=== PATIENT | male | born 1980 | race Caucasian/White ===

== ENCOUNTER 2022-04-22 01:52 | Outpatient (CLI) | payer MEDICAID, SELFPAY ==
[2022-04-22 12:49] LABS: ALT 98 U/L (16-63); AST 18 U/L (15-37); Albumin 4.1 g/dL (3.4-5.0); Alkaline Phosphatase 65 U/L (46-116); Anion Gap 8.8 mmol/L (3-11); BUN 12 mg/dL (7-18); Bilirubin, Total 0.8 mg/dL (0.2-1.0); CO2 27.2 mmol/L (21.0-32.0); CREATININE 1.2 mg/dL (0.70-1.30); Calcium 9.1 mg/dL (8.5-10.1); Calculated LDL 188 mg/dL (<100); Chloride 104 mmol/L (98-107); Cholesterol 257 mg/dL (<200); Glucose 96 mg/dL (74-106); HDL Cholesterol 46 mg/dL (40-60); Potassium 4.4 mmol/L (3.5-5.1); Sodium 140 mmol/L (136-145); Triglyceride 115 mg/dL (<150)
== END 2022-04-22 01:53 | disposition home or self-care (01) ==
LOC: LBO 01:52
PROVIDERS: PCP Family Medicine; Visit Provider Family Medicine
DX: E78.5 Hyperlipidemia, unspecified (principal)
CPT/HCPCS: 36415; 80053; 80061

== ENCOUNTER 2022-06-19 07:14 | Emergency (ER) | payer MEDICAID, SELFPAY ==
[2022-06-19 07:17] VITALS: BP 123/74; PULSE 90; RESP 18; TEMP 36.7; O2SAT 98
--- NOTE | 2022-06-19 07:51 | ED.GENADUL_ITS ---
Discharge Plan Disposition Patient Disposition: HOME Condition: Stable Discharge Details Clinical Impression: Cellulitis of left hip, Spider bite Primary Care Provider: Luis E Alcazar ED Provider: Alexandria Bueno Home Meds and New Rx's Prescriptions: New cephalexin 500 mg capsule 500 mg PO QID 7 Days Qty: 28 0RF Continued citalopram [Celexa] 20 mg tablet 20 mg PO DAILY Qty: 90 3RF quetiapine [Seroquel] 100 mg tablet 100 mg PO DAILY Qty: 90 3RF hydroxyzine HCl 50 mg tablet 100 mg PO QHS Qty: 180 3RF atorvastatin 40 mg tablet 40 mg PO QHS Qty: 90 3RF quetiapine [Seroquel] 50 mg tablet 50 mg PO QHS MDD 150 mg Qty: 90 1RF Discharge Instructions Instructions: Cellulitis (ED) Additional Instructions: Drink plenty of fluids and get plenty of rest. Keep the area clean and dry and avoid rubbing from pants or tight clothing. Apply warm compresses to the area for 10-15 minutes at a time several times daily. A prescription for antibiotics has been sent electronically to your pharmacy to take as directed until finished. Follow up with your primary care doctor in 1 week for re-evaluation. Return immediately to the emergency department if you develop any worsening or new concerning symptoms of fever, increased pain, redness, or swelling. Discharge Data Discharge Date/Time-TO BE ENTERED AT DEPARTURE: 06/19/22 08:13 Discharge Physician: Alexandria Bueno Medical Decision Making 41yo M who presents with L hip redness, pain, and swelling s/p spider bite 4 days ago. 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 There is a 2x6cm area of tender indurated erythema located on the L lateral hip. No abscess. Pt appears nontoxic. Will cover with PO antibiotics as there is no abscess with indication for I and D at this time. Denies h/o tick or bull's eye rash or fever. Dose of keflex given here and script sent electronically to his pharmacy. Advised to f/u with his pcp. Usual and customary return precautions given. HPI General Mode of arrival: ambulatory . Date/Time Provider Initiated Documentation: 06/19/22 07:39 . Limitations to Documentation: no limitations . Information obtained by: patient . HPI Narrative: Pt is a 41yo M who presents with c/o a spider bite to his L hip 4 days ago now with pain, redness and swelling. 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 Denies any known brown recluse or black spiders. He states 4 days ago he saw a spider on him and felt a prick on his Left hip and saw the spider crawling away. He states he was wearing pants that were rubbing near the area and now has developed worsening redness, pain, and swelling in the area. Denies any known tick bite, fever, chills, bodyaches, or bull-eye rash. Related Data Home Medications Medication Instructions Recorded Confirmed citalopram 20 mg tablet (Celexa) 20 mg PO DAILY #90 tabs 04/08/22 06/19/22 quetiapine 100 mg tablet (Seroquel) 100 mg PO DAILY #90 tabs 04/08/22 06/19/22 atorvastatin 40 mg tablet 40 mg PO QHS #90 tabs 06/03/22 06/19/22 hydroxyzine HCl 50 mg tablet 100 mg PO QHS #180 tabs 06/03/22 06/19/22 quetiapine 50 mg tablet (Seroquel) 50 mg PO QHS #90 tabs 06/13/22 06/19/22 cephalexin 500 mg capsule 500 mg PO QID 7 days #28 caps 06/19/22 Previous Rx's Medication Instructions Recorded citalopram 20 mg tablet (Celexa) 20 mg PO DAILY #90 tabs 04/08/22 quetiapine 100 mg tablet (Seroquel) 100 mg PO DAILY #90 tabs 04/08/22 atorvastatin 40 mg tablet 40 mg PO QHS #90 tabs 06/03/22 hydroxyzine HCl 50 mg tablet 100 mg PO QHS #180 tabs 06/03/22 quetiapine 50 mg tablet (Seroquel) 50 mg PO QHS #90 tabs 06/13/22 cephalexin 500 mg capsule 500 mg PO QID 7 days #28 caps 06/19/22 Allergies Allergy/AdvReac Type Severity Reaction Status Date / Time No Known Allergies Allergy Verified 06/13/22 09:16 General Stated Complaint: Cellulitis EBER: 4 Review of Systems All systems reviewed & are unremarkable except as noted in HPI and below Constitutional Constitutional: Reports as per HPI, Denies chills and Denies fever(s) Eyes Eyes: Denies blurry vision ENT Ears, Nose, Mouth, and Throat: Denies dizziness, Denies sore throat and Denies throat swelling Cardiovascular Cardiovascular: Denies chest pain and Denies dyspnea Respiratory Respiratory: Denies cough and Denies dyspnea Gastrointestinal Gastrointestinal: Denies abdominal pain, Denies diarrhea and Denies vomiting Genitourinary Genitourinary: Denies hematuria and Denies dysuria Musculoskeletal Musculoskeletal: Denies back pain and Denies numbness Integumentary/Breasts Skin/Breast: Denies lesions and Denies rash Neurologic Neurologic: Denies dizziness, Denies localized weakness and Denies numbness Allergic/Immunologic Allergic/Immunologic: Denies throat swelling PFSH All Active Problems (Updated 06/19/22 @ 07:52 by Alexandria Bueno DO) Cellulitis of left hip (Acute) Spider bite (Acute) Hyperlipidemia (Acute) Contact dermatitis (Acute) Insomnia (Acute) Anxiety and depression (Chronic) Medical History (Updated 06/19/22 @ 07:52 by Alexandria Bueno DO) Anxiety Chronic back pain Depression History of suicide attempt Vertigo Surgical History (Updated 03/25/22 @ 13:27 by Nallely Samuels) History of appendectomy Family History (Updated 03/25/22 @ 13:30 by Nallely Samuels) Brother Asthma Depression Diabetes Father Depression Diabetes Social History (Updated 03/25/22 @ 13:52 by Nallely Samuels) Smoking/Tobacco Use Status: Never Smoking risk assessment performed?: Yes Alcohol Intake: never Drug use: Never Substance use type: does not use Adopted: Yes Caregiver/Support person: No Foster care: Yes Household members: family Housing: house Number of Children: 1 Communication Needs: Corrective Lenses Education Level: high school Pets and animals: Yes Pets and animals: dog(s) Sexually active: Yes Do you think of yourself as: straight/heterosexual Current gender identity: male What is your relationship status?: How often do you talk on the phone with friends or family?: three or more times per week How often do you get together with friends or relatives?: once per week Do you belong to any clubs or organized social groups?: no Panel score (0-1 are the most socially isolated patients): 2 What type of physical activity do you participate in: walking Duration: 45-60 minutes/day Frequency: 3-4 times per week Minerva/Anabaptist: Other Seatbelt use: always Helmet use: No Drive intox or ride w/intox dedicated regional driver: No Do you feel safe at home: Yes Do you feel safe in your relationship?: Yes Exam Const General: cooperative, healthy appearing and no acute distress HENMT Head: normal to inspection Mouth: oral mucosae normal Eyes General: appearance normal, both eyes and all related structures Neck Neck: normal visual inspection Resp Effort & Inspection: normal respiratory effort and able to speak in complete sentences Cardio Rate: regular rate Skin General skin exam: no rashes or lesions noted Neuro General: patient alert, patient awake and patient oriented x3 Motor: muscle tone normal throughout Extrem General: normal to inspection and full ROM Upper/lower leg/hip images: 1. 2x6cm area of tender, indurated erythema located just above left lateral anterior hip. No fluctuance. 2. 1x1cm crust in center, nondraining. Psych Appearance: grossly normal Affect: normal affect Course Vital Signs Vital signs: Vital Signs Temperature 98.1 F 06/19/22 07:17 Pulse 90 06/19/22 07:17 Respiratory Rate 18 06/19/22 07:17 Blood Pressure 123/74 06/19/22 07:17 Pulse Oximetry 98 06/19/22 07:17 Temperature 98.1 F 06/19/22 07:17 Temperature Source Temporal Artery Scan 06/19/22 07:17 Pulse 90 06/19/22 07:17 Respiratory Rate 18 06/19/22 07:17 Blood Pressure 123/74 06/19/22 07:17 Blood Pressure Position Supine 06/19/22 07:17 Pulse Oximetry 98 06/19/22 07:17 Oxygen Delivery Method Room Air 06/19/22 07:17 Oxygen Flow Rate 0 06/19/22 07:17 Pain Level 0 06/19/22 07:17
[2022-06-19] MEDS: Cephalexin 500 MG CAP PO (07:55)
[2022-06-19] MEDS: Cephalexin 500 MG CAP, 4 CAPS/BTL PO (07:58)
[2022-06-19 08:05] VITALS: BP 123/74; PULSE 90; RESP 18; TEMP 36.7; O2SAT 98
== END 2022-06-19 08:13 | disposition home or self-care (01) ==
PROVIDERS: Emergency Provider Physician Assistant; PCP Family Medicine
DX: T63.301A Toxic effect of unspecified spider venom, accidental (unintentional), initial encounter (principal); L03.116 Cellulitis of left lower limb
CPT/HCPCS: 99283; 99284

== ENCOUNTER → 2022-08-26 14:50 | Outpatient (CLI) | payer OTHER, SELFPAY ==
--- NOTE | 2022-08-26 10:15 | DI.RAD_ITS ---
Exam(s) XR HAND LT COMPLETE XR WRIST LT COMPLETE EXAM: XR HAND LT COMPLETE and XR wrist LT complete CLINICAL HISTORY: Rt hand pain, M79.642, evaluate fx 4th MCP. TECHNIQUE: 2D digital imaging was performed of the left hand. Six views were obtained. AP, lateral and oblique views were obtained. COMPARISON: None for comparison. FINDINGS: BONES: No acute fracture is present. No bony destructive lesion is seen. JOINTS: No dislocation present. SOFT TISSUE: Normal. IMPRESSION: Unremarkable radiographs of the left wrist and hand. DATA REPOSITORY: RADIATION DOSE DELIVERED:
== END ==
PROVIDERS: PCP Family Medicine; Visit Provider Nurse Practitioner Family
DX: M79.642 Pain in left hand (principal); M25.532 Pain in left wrist
CPT/HCPCS: 73110; 73130

== ENCOUNTER 2022-09-05 18:08 | Observation (INO) | payer MEDICAID, SELFPAY ==
[2022-09-05 18:18] VITALS: BP 130/70; PULSE 89; RESP 18; TEMP 36.2; O2SAT 96
--- NOTE | 2022-09-05 18:40 | ED.GENADUL_ITS ---
Discharge Plan Disposition Patient Disposition: [facility] INPATIENT Condition: Stable Discharge Details Clinical Impression: Depression with suicidal ideation Admit Date/Time: 09/06/22 00:01 Admit Provider: Emile Man Attending Provider: Emile Man Primary Care Provider: Luis E Alcazar ED Provider: Christina Catherine Discharge Data Discharge Date/Time-TO BE ENTERED AT DEPARTURE: 09/06/22 00:44 Medical Decision Making 42-year-old male presents to the ER with a chief complaint of suicidal ideation which has been ongoing for the last 4 months. He reports that he was at the parole office today and began scraping his right inner arm with a DVD and then began scraping it with his fingernail. He states that the voices in his head told him to do that. He denies any other plan at this time. He does have thoughts of harm and looks around to see what he could hurt himself with. Patient placed in room in line of sight of nurses station. Placed in paper scrubs and belongings collected by hospital staff pharmacist. Urinalysis and urine drug screen obtained. Tylenol ordered for his headache. He is calm and cooperative at this time. Mental health eval order placed. Patient medically cleared via smart medical clearance form. He does not appear to be under the influence of any substances he is alert and oriented. [facility]. 1929: Maria with [facility] on phone spoke with breaker unit assembler he reports that she is already assessed the patient and is seeking placement for him as a voluntary placement. 2135: Patient is watching TV is eating some food, his normal night meds ordered, he has remained calm and cooperative throughout stay, he is aware of the plan of care and verbalizes understanding. 2301: Nirav nixon hospitalist for admission while awaiting voluntary placement. 7: Spoke with Dr. Man who agrees to come and eval patient. Medical Records Medical records reviewed: Yes I reviewed the patient's medical records. HPI General Mode of arrival: ambulatory . Date/Time Provider Initiated Documentation: 09/05/22 18:21 . Limitations to Documentation: no limitations . Information obtained by: patient, RN notes reviewed and old records reviewed . HPI Narrative: 42-year-old male presents to the ER with a chief complaint of suicidal ideation which has been ongoing for the last 4 months. He reports that he was at the parole office today and began scraping his right inner arm with a DVD and then began scraping it with his fingernail. He states that the voices in his head told him to do that. He denies any other plan at this time. He does have thoughts of harm and looks around to see what he could hurt himself with. He has been taking his normal medications as directed per his report. He denies any illicit drugs, alcohol does not smoke. He does have a history of anxiety and depression. He reports it all just came to ahead. He is calm and cooperative at this time. He does have approximately 7 cm superficial abrasion noted to his right inner forearm and some surrounding erythema consistent with his description. Related Data Home Medications Medication Instructions Recorded Confirmed citalopram 20 mg tablet (Celexa) 20 mg PO DAILY #90 tabs 04/08/22 09/05/22 atorvastatin 40 mg tablet 40 mg PO QHS #90 tabs 06/03/22 09/05/22 hydroxyzine HCl 50 mg tablet 100 mg PO QHS #180 tabs 06/03/22 09/05/22 quetiapine 100 mg tablet 150 mg HS 09/06/22 09/06/22 Previous Rx's Medication Instructions Recorded citalopram 20 mg tablet (Celexa) 20 mg PO DAILY #90 tabs 04/08/22 atorvastatin 40 mg tablet 40 mg PO QHS #90 tabs 06/03/22 hydroxyzine HCl 50 mg tablet 100 mg PO QHS #180 tabs 06/03/22 Allergies Allergy/AdvReac Type Severity Reaction Status Date / Time No Known Allergies Allergy Verified 09/05/22 18:24 General Stated Complaint: PsychEval EBER: 2 Review of Systems All systems reviewed & are unremarkable except as noted in HPI and below Constitutional Constitutional: Reports as per HPI and Reports headache(s) ENT Ears, Nose, Mouth, and Throat: Reports headache(s) Neurologic Neurologic: Reports headache(s) Psychiatric Psychiatric: Reports as per HPI, Reports depression, Reports auditory hallucinations and Reports suicidal ideation PFSH All Active Problems Depression with suicidal ideation (Acute) Hyperlipidemia (Acute) Contact dermatitis (Acute) Insomnia (Acute) Anxiety and depression (Chronic) Medical History Anxiety Chronic back pain Depression History of suicide attempt Vertigo Surgical History History of appendectomy Family History Brother Asthma Depression Diabetes Father Depression Diabetes Social History Smoking/Tobacco Use Status: Never Smoking risk assessment performed?: Yes Alcohol Intake: never Drug use: Never Substance use type: does not use Adopted: Yes Caregiver/Support person: No Foster care: Yes Household members: family Housing: house Number of Children: 1 Communication Needs: Corrective Lenses Education Level: high school Pets and animals: Yes Pets and animals: dog(s) Sexually active: Yes Do you think of yourself as: straight/heterosexual Current gender identity: male What is your relationship status?: How often do you talk on the phone with friends or family?: three or more times per week How often do you get together with friends or relatives?: once per week Do you belong to any clubs or organized social groups?: no Panel score (0-1 are the most socially isolated patients): 2 What type of physical activity do you participate in: walking Duration: 45-60 minutes/day Frequency: 3-4 times per week Minerva/Anabaptist: Other Seatbelt use: always Helmet use: No Drive intox or ride w/intox 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 Appears stated age. Normal body habitus. Head: Normocephalic, no trauma. Eyes: Pupils PERRL, Red reflex noted, EOM's intact. Eyelids symmetrical without lesions, discharge, or swelling. ENT: Bilateral TM's WNL, External ear normal to inspection, no mastoid TTP, swelling, or erythema, Nasal turbinates WNL, no nasal discharge. Normal dentition, Posterior pharynx WNL, no exudate. Chest: RRR, Normal S1, S2, distal pulses intact. Resp: Lungs clear to auscultation bilaterally, no wheezes, rales, or rhonchi. Abdomen: Soft, non-distended, Normoactive bowel sounds all 4 quads. Musculoskeletal: Normal gait, 5/5 strength to all four extremities. Skin: Superficial abrasion noted to the right inner forearm with surrounding erythema. capillary refill less than 2 sec. Neurologic: Cranial nerves II-XII intact. Alert and oriented x 3. Motor: No deficits noted. Sensory: Intact bilaterally all 4 extremities. Reflexes: DTR's intact bilaterally.. Hematologic/Lymphatic: No ecchymosis, no lymphadenopathy. Psych Appearance: well kempt Speech and Movement: speech and movement normal Affect: sad Attitude: cooperative Thought Process: normal Thought Content: hallucinations auditory and suicidality Insight: insight good Judgment: fair Course Vital Signs Vital signs: Vital Signs Temperature 36.2 C L 09/05/22 18:18 Pulse 89 09/05/22 18:18 Respiratory Rate 18 09/05/22 18:18 Blood Pressure 130/70 09/05/22 18:18 Pulse Oximetry 96 09/05/22 18:18 Temperature 36.2 C L 09/05/22 18:18 Temperature Source Tympanic 09/05/22 18:18 Pulse 89 09/05/22 18:18 Respiratory Rate 18 09/05/22 18:18 Blood Pressure 130/70 09/05/22 18:18 Blood Pressure Position Supine 09/05/22 18:18 Pulse Oximetry 96 09/05/22 18:18 Oxygen Delivery Method Room Air 09/05/22 18:18 Oxygen Flow Rate 0 09/05/22 18:18 Pain Level 4 09/05/22 18:18 PAWSS Pt Consumed Any Amount of Alcohol Within the Last 30 days OR had positive ROGELIO Upon Admission: No
[2022-09-05] MEDS: Acetaminophen 325 MG TAB 650 MG PO (18:55)
[2022-09-05 19:23] LABS: *AMPHETAMINES SCREEN URINE Negative (Negative); *BARBITURATES SCREEN URINE Negative (Negative); *BENZODIAZEPINES SCREEN URINE Negative (Negative); Cannabinoids THC Negative (Negative); Cocaine Screen,Urine Negative (Negative); METHADONE URINE SCREEN Negative (Negative); OPIATES URINE SCREEN Negative (Negative)
[2022-09-05 19:26] LABS: Tricyclic Antidepressants Negative (Negative)
--- NOTE | 2022-09-05 19:31 | NUR.NOTE ---
Nursing Note: handoff from DK at 1900. She had not seen the pt yet so I got additional report from US. Mental health eval not yet complete.
[2022-09-05] MEDS: Atorvastatin 40 MG TAB PO (20:43)
[2022-09-05] MEDS: QUEtiapine 50 MG TAB PO (20:43)
[2022-09-05] MEDS: hydrOXYzine HCL 50 MG TAB 100 MG PO (20:43)
[2022-09-05 21:46] LABS: Source Nasal/Nares
--- NOTE | 2022-09-05 22:06 | PDOC.MHCN ---
Date of service: 09/05/22 Time of Service: 20:06 PHQ-9 Over the last 2 weeks, how often have you been bothered by any of the following problems? 1. Little interest or pleasure in doing things: nearly every day 2. Feeling down, depressed, or hopeless: nearly every day 3. Trouble falling or staying asleep, or sleeping too much: nearly every day 4. Feeling tired or having little energy: nearly every day 5. Poor appetite or overeating: nearly every day 6. Feeling bad about yourself - or that you are a failure or have let yourself and your family down: nearly every day 7. Trouble concentrating on things, such as reading the newspaper or watching television: nearly every day 8. Moving or speaking so slowly that other people could have noticed? - Or the opposite - being so fidgety or restless that you have been moving around a lot more than usual: nearly every day 9. Thoughts that you would be better off or of hurting yourself in some way: nearly every day Total score: 27 If you checked off any problems, how difficult have these problems made it for you to do your work, take care of things at home, or get along with other people?: extremely difficult Source: Developed by Drs. Tye Pruitt, Doris Fernandez, Reese Fraser and colleagues, with an educational loida from [employer]. Suicide Severity Rate CSSRS Have you wished you were or wished you could go to sleep and not wake up?: Yes Have you actually had any thoughts of killing yourself?: Yes CSSRS2 Have you been thinking about how you might do this?: Yes Have you had these thoughts and had some intention of acting on them?: Yes Have you started to work out or worked out the details of how to kill yourself? Do you intend to carry out this plan?: Yes CSSRS3 Have you ever done anything, started to do anything or prepared to do anything to end your life?: Yes CSSRS4 Was this within the past three months?: Yes Screening Score Total Score: 8 Screening: Positive Mental Health Emergency Note Release [facility] release signed:: Yes Reason for Visit Clients school services officer Schuyler Santos called [facility] ES stating that client was brought in on a violation of probation and is currently endorsing SI with intent and plan to hang himself if he is to leave the office. Tom reports that client at this time and refusing to go to the hospital. Client is a new client to [facility] as of May of 2022 and is followed by outpatient therapist Lizzette Lamb. Client is currently receiving medications prescribed by his PCP and reports that he is compliant. Client is seen in person at probation and parole office in [facility]. In the last 2 weeks has the pt presented for ES prior to today?: No Client Information Client is: Adult Outpatient Non Suicidal Self Injury Current: Yes, Client has superficial cuts on both forearms that he did himself with his fingernails and dvd. History: yes, Client reports hx of harm to self and others, however, would not disclose details. Safety Risk/Harm to Self or Others Current Ideation to Harm Self or Others: Yes to self. (Client currently endorsing persistent SI with plan to hang himself. Client rates intent 07/23. ) Intent: yes, has intent. Plan: yes,has a plan. History of suicide attempt: No history of suicide attempt reported Risk: Does risk to harm exist?: yes. Access to means: No. Risk: High Risk Duty to warn indicated: No Asssessment/Mental Status Appearance: Unremarkable Attitude: Cooperative Behavior: Unremarkable Speech: Normal Affect: Flat and Cogruent with mood Mood: Sad, Stressed and Depressed Thought process: Unremarkable Hallucinations: yes, Auditory (Client reports the voices of ximena and talya who tell him to end it all. ) Delusions: No Attention: Unremarkable Perception: Not impaired Orientation: Fully orientated Memory: Intact Insight: Poor Judgement: Poor Neurovegetative Symptoms Sleep: Decrease (Client reports very poor sleep, stating that he does not get restful sleep . ) Appetitie: No change Interests: Decrease Energy: Decrease Libido: Not applicable Substance Use: Do you use nicotine?: No Have you used substances in the last 7 days?: No Additional Issues: Assaultive/Threatening Behavior: No Medical Concerns: No Client engaged in active self harm w/weapon: No Threatening to run away: No Child reported abuse/neglect: No Voluntarily presenting for services: Yes Domestic violence is a concern: No Extreme Psychosis or extreme behavior is present: No Impression Client is a 42 y/o male who is currently going through a separation with his . Client is currently living with his father in [place], [place]. 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 Client states that his school services officer stated that he was receiving pornographic pictures on his cell phone, which is a violation of probation and seized all of his devices from his home today. Client presents with symptoms most congruent with major depressive disorder, as evidenced by self report, that he feels hopeless and worthless on a daily basis. Client also reports poor sleep and decrease in things that used to bring him servando. Client reports that when he is asleep he does not feel like he gets restful sleep as he feels like he is awake and not sleeping. Client reports to this typewriter operator automatic: I don't want to live through this anymore and I am not going to, I just need to end it all. Client reports that if he were to leave the office he would act on his thoughts to by suicide. When offered two choices by this typewriter operator automatic to go to the hospital to seek voluntary inpatient treatment or a warrant would be written client agreed to go to the hospital on voluntary basis. Client would benefit from inpatient treatment to stabilize mood, reduce suicidal ideations, and learn coping skills. Plan/Disposition Recommended Disposition: Hospitalization (Referrals will be faxed to [facility], [facility], [facility], , and [facility]. ) facilities contacted. Plan: Client will be transported to [facility] via probation officers to seek voluntary treatment. This typewriter operator automatic will call [facility] to give them a heads up. If client is to attempt to leave the hospital an EE should be explored due to clients current persistent SI with intent and plan. Client will be re-assessed by [facility] daily until placement is secured or clients acuity level decreases and he is able to be safety planned home.? Person reported agreement to plan: Yes Reports/communication Outcome discussed with: ED/Personnel (Verbal passover with ED provider Dr. Mullen. )
[2022-09-05 22:17] LABS: COVID-19 PCR Negative (Negative)
--- NOTE | 2022-09-05 23:51 | W.PM.HP.N ---
Date of service: 09/05/22 Time of Service: 23:51 Assessment and Plan Assessment and plan (1) Depression with suicidal ideation: Status: Acute Assessment and plan: Suicidal ideation in setting of depression and anxiety. I do not see any mention of a psychotic disorder in the record and the report of possible command hallucinations raises question of same. Regardless will continue usual regimen for now and await placement while maintaining current precautions. History of Present Illness History of Present Illness Chief Complaint: suicidal ideation Narrative: 42 male with h/o anxiety and depression, here today with several months of suicidal ideation; immediate antecedent of today's visit was episode in which he was scratching at his arm today while with collection officer, expressing that voices were telling him to do that. Here in ER has been cleared by SMART protocol, with negative UDS and is admitted on voluntary basis. Here has been given his usual hs Seroquel and Vistaril and no behavioral issues have been reported. Review of Systems Narrative: per HPI PFSH All Active Problems Depression with suicidal ideation (Acute) Hyperlipidemia (Acute) Contact dermatitis (Acute) Insomnia (Acute) Anxiety and depression (Chronic) Medical History Anxiety Chronic back pain Depression History of suicide attempt Vertigo Surgical History History of appendectomy Family History Brother Asthma Depression Diabetes Father Depression Diabetes Social History Smoking/Tobacco Use Status: Never Smoking risk assessment performed?: Yes Alcohol Intake: never Drug use: Never Substance use type: does not use Adopted: Yes Caregiver/Support person: No Foster care: Yes Household members: family Housing: house Number of Children: 1 Communication Needs: Corrective Lenses Education Level: high school Pets and animals: Yes Pets and animals: dog(s) Sexually active: Yes Do you think of yourself as: straight/heterosexual Current gender identity: male What is your relationship status?: How often do you talk on the phone with friends or family?: three or more times per week How often do you get together with friends or relatives?: once per week Do you belong to any clubs or organized social groups?: no Panel score (0-1 are the most socially isolated patients): 2 What type of physical activity do you participate in: walking Duration: 45-60 minutes/day Frequency: 3-4 times per week Minerva/Temple: Other Seatbelt use: always Helmet use: No Drive intox or ride w/intox local company hazmat driver: No Do you feel safe at home: Yes Do you feel safe in your relationship?: Yes Meds Allergies and Home Medications Allergies Allergy/AdvReac Type Severity Reaction Status Date / Time No Known Allergies Allergy Verified 09/05/22 18:24 Home Medications Medication Instructions Recorded Confirmed Type citalopram 20 mg tablet (Celexa) 20 mg PO DAILY #90 tabs 04/08/22 09/05/22 Rx quetiapine 100 mg tablet (Seroquel) 100 mg PO DAILY #90 tabs 04/08/22 09/05/22 Rx atorvastatin 40 mg tablet 40 mg PO QHS #90 tabs 06/03/22 09/05/22 Rx hydroxyzine HCl 50 mg tablet 100 mg PO QHS #180 tabs 06/03/22 09/05/22 Rx quetiapine 50 mg tablet (Seroquel) 50 mg PO QHS #90 tabs 06/13/22 09/05/22 Rx Exam Narrative Exam Narrative: Sleeping as I enter room, awakens to voice. 130/70, 89, 36.2, 18, 96% RA. HEENT atraumatic; neck supple; lungs clear; heart RRR; abdomen soft and NT; extremities w/o edema, distal RUE wrapped in gauze, not taken down, neuro Ox3, does not appear to be responding to internal stimuli, moves all 4s Results Labs Labs: Laboratory Results - last 24 hr 09/05/22 09/05/22 18:40 21:45 Urine Opiates Screen Negative Urine Methadone Screen Negative Ur Barbiturates Screen Negative Ur Tricyclics Screen Negative Ur Amphetamines Screen Negative U Benzodiazepines Scrn Negative Urine Cocaine Screen Negative Ur THC Screen Negative COVID-19 Source Nasal/Nares SARS-CoV-2 (PCR) Negative Last Vital Signs Temp 36.2 C L 09/05/22 18:18 Pulse 89 09/05/22 18:18 Resp 18 09/05/22 18:18 BP 130/70 10/24/22 18:18 Pulse Ox 96 09/05/22 18:18 PAWSS Pt Consumed Any Amount of Alcohol Within the Last 30 days OR had positive ROGELIO Upon Admission: No
[2022-09-06 01:12] VITALS: BP 109/71; PULSE 66; RESP 18; TEMP 37; O2SAT 98
[2022-09-06 07:38] VITALS: BP 113/78; PULSE 71; RESP 16; TEMP 36.4; O2SAT 98
[2022-09-06] MEDS: Citalopram 20 MG TAB PO (08:12)
--- NOTE | 2022-09-06 09:37 | CMSP_ITS ---
- If Service Date Differs Date of service: 09/06/22 Time of Service: 09:37 Care Management Safety Plan Status: Voluntary - Reason for Wait Reason for Wait: Inpatient Admission Landen will have a field officer in his room while his gps ankle bracelet charges to mitigate any concern surrounding a cord being in his room. This is a safety measure, as his digital controls technical officer expressed concern that since he is voluntary, if he was to leave the hospital, he will be violating the terms of his parole, as his gps ankle bracelet is not operational. Per digital controls technical officer, as a condition of his parole he is not to use any electronic devices. VOLUNTARY FOR INPATIENT PSYCHIATRIC STABILIZATION. Patient is appropriate in all interactions since arriving at [facility]; Pt has demonstrated appropriate coping and communication skills, has articulated his or her needs and concerns and is fully engaged during staff interactions. Safety plan has been established with patient, and care team, to adhere to patient goals, identify restrictions based on behavioral status, address nutrition, and determine allowed personal belongings, tools for hygiene and personal care. Determine level of activity including ambulation, level of supervision, visitors, and determine privileges based on behaviors and level of engagement by pt. SAFETY PLAN: 1. Will remain on suicide precautions. In Paper Clothes 2. Will remain in room under direct supervision of one-on-one staff at all times provided by [employer]; MOOK, FINANCIAL SERVICES SALES REPRESENTATIVE accordion tuner. 3. May have paper cups, plates, finger foods as well as a cardboard spoon with which to eat meals. 4. Follow [facility] Management of the Admitted Behavioral Health Patient policy. 5. Comfort bath system only, shower permitted with escort at RN discretion. 6. No personal belongings-soft items permitted at RN discretion. 7. Visitors- at RN discretion. 8. Activities: soft cart items including stress ball, paper, crayons and coloring book, approved per RN discretion. 9. Bathroom privileges with escort in the ED, available in room without limitation on M/S. 10. Phone: incoming/outgoing calls, via cordless phone at RN discretion. 11. Due to VOLUNTARY status, if patient wishes to leave [facility], staff will contact [facility] Crisis Screener ([phone]) and On-Call [place] Guide ([phone]) as soon as possible. In the event of elopement, notify [facility] Police ([phone]). Patient is currently voluntarily at [facility] and seeking inpatient admission when a bed becomes available. [facility] Frontline Inspectors And Regulatory Officers will continue seeking placement. Please contact the [employer] Master [place] Guide ([phone]) and [facility] Inspectors And Regulatory Officers ([phone]) for any needed changes in the Safety Plan. Safety plan has been provided to interdepartmental care team.
--- NOTE | 2022-09-06 09:38 | CMPROGNOTE_ITS ---
- If Service Date Differs Date of service: 09/06/22 Time of Service: 09:38 Care Management Progress Note S/O: Per report, Landen was brought to the ED by his senior administrative services officer after being screened in the community for SI, with a plan to hang himself. He is going through a separation from his , and reportedly lost his job yesterday after violating his probation and being placed on house arrest. He sees an outpatient therapist at [facility]. Landen reported that he has had a lot going on right now, including his recent house arrest and the fact that he hasn't seen his two year old daughter since she was six months old. He stated that he has been in the system since around 1998, and has been in and out of incarceration since that time. He reported that he is not allowed to have access to the internet as a condition of his parole. He also stated that his gps ankle bracelet's battery is dying, but it can't be plugged in while he is at [facility] (due to concern for SI and having a cord in the room). JHOANA spoke to Steven ([phone]) his PO, who suggested that a field officer sit with Landen while the battery is charging. CM huddled with his RN and the CC, and also spoke to the RN cook supervisor, who all agreed that this would be reasonable. His PO's concern is that he is currently voluntary, and therefore would be violating his terms of parole if he leaves without his gps ankle bracelet working. Landen asked his RN if someone would reach out to his work to let them know he would not be there. CM will advise Landen that he should make this call himself, as we cannot share sensitive information. If he doesn't feel comfortable making this call today, he can contact them at a later time. CM will continue to follow. A: Landen is a 42 year old male admitted to [facility] on 09/06/22 for SI. P: Landen will remain at [facility] while waiting for inpatient psychiatric treatment. Referrals will be sent by [facility] to all hospitals currently accepting patients. He will transport via [employer] [facility], depending on availability at time of transfer. Per [facility], if he chooses to leave, they will pursue a MH warrant for EE. He will follow up with his PCP, [facility], and his discharge plan of care. CM will continue to follow.
[2022-09-06] MEDS: Acetaminophen 325 MG TAB 650 MG PO (11:49)
--- NOTE | 2022-09-06 14:21 | W.PM.PROGNOT ---
Date of Service Date of service: 09/06/22 Time of Service: 14:21 Assessment and Plan Assessment and plan (1) Depression with suicidal ideation: Status: Acute Assessment and plan: Suicidal ideation in setting of depression and anxiety. continue safety and suicidal precautions. mental health following and plan for inpatient hospitalization discussed with DR Chambers. Subjective Subjective Patient reports: no new complaints, tolerating liquids well, tolerating a regular diet and afebrile Interval history since last seen: remains medically stable. Exam Const General: cooperative, healthy appearing and no acute distress HENMT Head: normal to inspection Mouth: oral mucosae normal Eyes General: appearance normal, both eyes and all related structures Neck Neck: normal visual inspection Resp Effort & Inspection: normal respiratory effort and able to speak in complete sentences Cardio Rate: regular rate Skin General skin exam: no rashes or lesions noted Neuro General: patient alert, patient awake and patient oriented x3 Motor: muscle tone normal throughout Extrem General: normal to inspection and full ROM Psych Appearance: grossly normal Affect: normal affect Objective Last Vital Signs Temp 36.4 C L 09/06/22 07:38 Pulse 71 09/06/22 07:38 Resp 16 09/06/22 07:38 BP 113/78 09/06/22 07:38 Pulse Ox 98 09/06/22 07:38 Laboratory Results - last 24 hr 09/05/22 09/05/22 18:40 21:45 Urine Opiates Screen Negative Urine Methadone Screen Negative Ur Barbiturates Screen Negative Ur Tricyclics Screen Negative Ur Amphetamines Screen Negative U Benzodiazepines Scrn Negative Urine Cocaine Screen Negative Ur THC Screen Negative COVID-19 Source Nasal/Nares SARS-CoV-2 (PCR) Negative PAWSS Pt Consumed Any Amount of Alcohol Within the Last 30 days OR had positive ROGELIO Upon Admission: No
--- NOTE | 2022-09-06 15:30 | NUR.NOTE ---
Nursing Note: Patient in room drawing with corin. He asked if Mental Health was coming back to see him today. Explained to patient the mental health was here to see him at 1100 and that they would be coming back tomorrow. Patient pressed his head against the wall and stated I am losing my mind! This screenplay writer attempted to redirect patient and talked about his drawings. Cranberry juice and BBQ chips obtained and provided to patient. Discussed with CC, and asked for the possibility of a PRN.
[2022-09-06] MEDS: clonazePAM 0.5 MG TAB PO (16:16)
[2022-09-06] MEDS: QUEtiapine 50 MG TAB PO (21:00)
[2022-09-06] MEDS: Atorvastatin 40 MG TAB PO (21:00)
[2022-09-06] MEDS: hydrOXYzine HCL 25 MG TAB 100 MG PO (21:00)
[2022-09-06] MEDS: QUEtiapine 100 MG TAB PO (21:00)
[2022-09-06 23:50] VITALS: BP 95/60; PULSE 82; RESP 16; TEMP 36.5; O2SAT 93
[2022-09-07 08:08] VITALS: BP 119/78; PULSE 71; RESP 12; TEMP 36.4; O2SAT 98
[2022-09-07] MEDS: Citalopram 20 MG TAB PO (08:21)
--- NOTE | 2022-09-07 11:20 | DSE_ITS ---
Date of service: 09/07/22 Time of Service: 11:20 DS: Diagnosis Discharge Diagnosis (1) Depression with suicidal ideation: Status: Acute Discharge Plan Disposition Patient Disposition: [facility] Condition: Stable Discharge Details Reason For Visit: Suicidal Ideation Admit Date/Time: 09/06/22 00:01 Admit Provider: Emile Man Attending Provider: Emile Man Primary Care Provider: Luis E Alcazar Hospital Course Hospital Course: This is a 42 male with history anxiety and depression, presented today with several months of suicidal ideation; reportedly he was scratching at his arm while with logistics supply officer, expressing that voices were telling him to do that. In the ED has been cleared by SMART protocol, with negative UDS and is admitted on voluntary basis. He has been given his usual Seroquel and Vistaril and no behavioral issues have been reported. He has remained medically stable and is being discharged to [facility]. discharge discussed with DR Chambers. Home Meds and New Rx's Prescriptions: Continued citalopram [Celexa] 20 mg tablet 20 mg PO DAILY Qty: 90 3RF hydroxyzine HCl 50 mg tablet 100 mg PO QHS Qty: 180 3RF atorvastatin 40 mg tablet 40 mg PO QHS Qty: 90 3RF quetiapine 100 mg tablet 150 mg HS Discharge Instructions Instructions: Depression (DC), Suicide Prevention (DC) Stand Alone Forms: Nursing Discharge Form Referrals: Luis E Alcazar DO [Primary Care Provider] - (on discharge from inpatient psychiatric management) Activity:: Activity as Tolerated Equipment/Supplies:: No Equipment Needed Diet:: As Tolerated Discharge Orders Discharge Orders: Discharge Order (Routine); Ordered 09/07/22 Ordered By: Saundra Olivera Discharge Data Discharge Date/Time-TO BE ENTERED AT DEPARTURE: 09/07/22 12:46 DS: Summary Time Spent with Patient providing and/or coordinating discharge services: Greater than 30 minutes Status at Discharge Functional status at discharge: independent ambulation Overall status at discharge: patient is not back to baseline Mental Status: mental status grossly normal Speech and Movement: speech and movement normal Mood: congruent mood Affect: blunted Exam Psych Mental Status: mental status grossly normal Speech and Movement: speech and movement normal Mood: congruent mood Affect: blunted DS: Data Vitals/I&O Vitals and I&O: Vital Signs Temperature 36.4 C L 10/26/22 08:08 Temperature Source Tympanic 09/07/22 08:08 Pulse 71 09/07/22 08:08 Pulse Rhythm Regular 09/07/22 08:54 Respiratory Rate 12 09/07/22 08:08 Respiratory Effort Non-Labored 09/07/22 08:54 Respiratory Depth Normal 09/07/22 08:54 Respiratory Pattern Normal 09/07/22 08:54 Blood Pressure 119/78 09/07/22 08:08 Blood Pressure Position Supine 09/05/22 18:18 Pulse Oximetry 98 09/07/22 08:08 Oxygen Delivery Method Room Air 09/07/22 08:08 Oxygen Flow Rate 0 09/07/22 08:08 Pain Level 0 09/07/22 08:08 Comment 09/06/22 23:50 Intake & Output 09/06/22 09/06/22 09/07/22 11:59 23:59 11:59 Intake Total 500 / 1450 950 / 1450 720 / 720 Balance 500 / 1450 950 / 1450 720 / 720 Intake: Oral 500 / 1450 950 / 1450 720 / 720 Other: Urine Color Yellow Yellow Urine Appearance Clear Clear Clear Urine Odor Normal Normal Comment independent to the bathroom. independent to bathroom. Stool Size Moderate Stool Characteristics Soft Voiding Methods Toilet Toilet Toilet PFS All Active Problems Depression with suicidal ideation (Acute) Hyperlipidemia (Acute) Contact dermatitis (Acute) Insomnia (Acute) Anxiety and depression (Chronic) Medical History Anxiety Chronic back pain Depression History of suicide attempt Vertigo Surgical History History of appendectomy Family History Brother Asthma Depression Diabetes Father Depression Diabetes Social History Smoking/Tobacco Use Status: Never Smoking risk assessment performed?: Yes Alcohol Intake: never Drug use: Never Substance use type: does not use Adopted: Yes Caregiver/Support person: No Foster care: Yes Household members: family Housing: house Number of Children: 1 Communication Needs: Corrective Lenses Education Level: high school Pets and animals: Yes Pets and animals: dog(s) Sexually active: Yes Do you think of yourself as: straight/heterosexual Current gender identity: male What is your relationship status?: How often do you talk on the phone with friends or family?: three or more times per week How often do you get together with friends or relatives?: once per week Do you belong to any clubs or organized social groups?: no Panel score (0-1 are the most socially isolated patients): 2 What type of physical activity do you participate in: walking Duration: 45-60 minutes/day Frequency: 3-4 times per week Minerva/Sikhism: Other Seatbelt use: always Helmet use: No Drive intox or ride w/intox bellman driver: No Do you feel safe at home: Yes Do you feel safe in your relationship?: Yes
--- NOTE | 2022-09-07 14:39 | PDOC.CMDIS ---
- If Service Date Differs Date of service: 09/07/22 Time of Service: 14:39 LACE Index Scoring Tool - Questions: Length of Stay (in days): 1 Acuity (Admit via E.D.?): Yes E.D. Visits: 2 - Answers: Total Score: 6 Risk of Readmission: Low Risk Care Management Discharge Reason for Hospitalization: suicidal ideation Discharge Plan: Landen was accepted at [facility] today, and accepted the bed offer. CM coordinated transport via [employer]. CM notified his PO, Schuyler, of his transfer to . Landen will follow up with his PCP and discharge plan of care. Landen is happy to be going to receive treatment. Patient/Family Education Needs: Review discharge instructions and limitations, discussion of self care needs including ask me three. Services Needed at Discharge: Psychiatric Facility ([facility]), Transportation ([facility]) - MH Services (Omit if N/A) Current MH Services: [facility] (outpatient therapy) - Disposition Disposition: [place] Transport via of: [facility] ([facility])
== END 2022-09-07 12:46 | disposition short-term general hospital (02) ==
LOC: ER 09-06 00:18 → MS 09-06 00:46
PROVIDERS: Admitting Provider General Practice; Emergency Provider Registered Nurse Emergency; PCP Family Medicine; Visit Provider General Practice
DX: F32.A Depression, unspecified (principal); R45.851 Suicidal ideations; R44.0 Auditory hallucinations; F41.9 Anxiety disorder, unspecified; G89.29 Other chronic pain; M54.9 Dorsalgia, unspecified; S50.811A Abrasion of right forearm, initial encounter; W22.8XXA Striking against or struck by other objects, initial encounter; Z20.822 Contact with and (suspected) exposure to COVID-19; Z79.899 Other long term (current) drug therapy; E78.5 Hyperlipidemia, unspecified; G47.00 Insomnia, unspecified; Z91.51 Personal history of suicidal behavior
CPT/HCPCS: 80307; 87635; 99285; 99217; 99218; 99225; G0378; J3490